=== PATIENT | male | born 1980 | race Asian ===

== ENCOUNTER 2023-03-10 18:53 | Emergency (ER) | payer MEDICAID ==
[~2023-03-10] VITALS: Ht 165.1 cm; Wt 59.0 kg
[2023-03-10 19:04] VITALS: BP 134/68; TEMP 98.4
[2023-03-10] MEDS ORDERED: AMOX875T2 PO (19:13)
[2023-03-10] MEDS ORDERED: IBUPROFEN 400 MG TABLET ONE (19:19)
[2023-03-10] MEDS ORDERED: AMOXICILLIN TRIHYDRATE 250 MG CAPSULE ONE (19:19)
[2023-03-10 19:22] VITALS: O2SAT 100
[2023-03-10] MEDS ORDERED: IBUPROFEN 400 MG TABLET PO ONE (19:30)
[2023-03-10] MEDS ORDERED: AMOXICILLIN TRIHYDRATE 500 MG CAPSULE PO ONE (19:30)
== END 2023-03-10 19:23 | disposition home or self-care (01) ==
LOC: ER 18:59
DX: H66.92 Otitis media, unspecified, left ear (principal); Z60.2 Problems related to living alone